=== PATIENT | male | born 1980 | race Caucasian/White ===

== ENCOUNTER 2018-07-05 05:44 | Emergency (ER) | END 2018-07-05 07:31 | disposition home or self-care (01) ==

== ENCOUNTER 2018-07-10 10:30 | Emergency (ER) | END 2018-07-10 11:42 | disposition home or self-care (01) ==

== ENCOUNTER 2018-09-05 06:47 | Emergency (ER) | payer BC ==
[~2018-09-05] VITALS: Wt 91.8 kg
[~2018-09-05 06:47] MED LIST: CEPH-443 PO
[2018-09-05 06:49] VITALS: BP 138/90; RESP 20
[2018-09-05] MEDS ORDERED: ACET500C5 PO (07:05)
[2018-09-05] MEDS ORDERED: IBUP-1542 PO (07:05)
[2018-09-05] MEDS ORDERED: OSEL75CA23 PO (07:05)
[2018-09-05] MEDS ORDERED: D-ME473S2 PO (07:06)
[2018-09-05] MEDS ORDERED: BENZ-6 PO (07:06)
--- NOTE | 2018-09-05 07:10 | ERD ---
ER Documentation Chief Complaint Chief Complaint FLU X 2 DAYS, FEVER,COUGH, RUNNY NOSE HPI Patient is a 38-year-old male with history of hypertension, DM type II, reports compliance to medications, presents the ER for concerns of fever, cough, rhinorrhea and generalized body aches for the last 2 days. Patient states he took Mucinex around 6 AM today. Patient states he has had tactile fevers. Patient states his cough is dry in nature. Patient denies any neck pain or neck stiffness. Patient denies any nausea, vomiting, abdominal pain, diarrhea. Patient denies any chest pain or shortness of breath. 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 No recent travel. No sick contacts. ROS All systems reviewed and are negative except as per history of present illness. Medications Home Meds Active Scripts Benzonatate* (Tessalon Perle*) 100 Mg Capsule, 100 MG PO Q8H PRN for COUGH, #20 CAP Prov:ANAT TOMAS PA-C 09/05/18 Dextromethorphan Hb-Promethazine Hcl* (Promethazine DM* Syrup) 473 Ml Syrup, 5 ML PO Q6 PRN for COUGH, #4 OZ Prov:ANAT TOMAS PA-C 09/05/18 Ibuprofen* (Motrin*) 600 Mg Tab, 600 MG PO Q6, #30 TAB Prov:ANAT TOMAS PA-C 09/05/18 Acetaminophen* (Tylophen*) 500 Mg Capsule, 1 CAP PO Q6H PRN for PAIN AND OR ISHMAEL VATED TEMP, #20 CAP Prov:ANAT TOMAS PA-C 09/05/18 Oseltamivir Phosphate* (Tamiflu*) 75 Mg Capsule, 75 MG PO BID for 5 Days, CAP Prov:ANAT TOMASC 09/05/18 Cephalexin* (Keflex*) 500 Mg Capsule, 500 MG PO QID for 7 Days, CAP Prov:AGUSTIN NIELSEN PA-C 07/05/18 Allergies Allergies: Coded Allergies: No Known Allergy (Unverified , 09/05/18) PMhx/Soc Hx Cardiac Disorders: Yes (htn) Hx Miscellaneous Medical Probl: Yes (diabetes) Hx Alcohol Use: No Hx Substance Use: No Hx Tobacco Use: No FmHx Family History: diabetes Physical Exam Vitals Vital Signs Date Temp Pulse Resp B/P (MAP) Pulse Ox O2 O2 Flow FiO2 Time Delivery Rate 09/05/18 100.0 07:11 09/05/18 100.0 99 20 138/90 99 06:49 (106) Physical Exam GENERAL: Well-developed, well-nourished male. Appears in no acute distress. Speaking in full sentences. Nontoxic in appearance. HEAD: Normocephalic, atraumatic. No deformities or ecchymosis. EYE: Pupils equal, round, and reactive to light. EOMs intact. No conjunctival erythema. No eye discharge. ENT: External ear without any masses or tenderness. Auditory canals clear bilaterally. TM visualized bilaterally, non-erythematous, non-bulging. Nasal mucosa pink with no discharge. Oropharynx is pink without any tonsillar erythema or exudates. No uvula deviation. No kissing tonsils. NECK: Supple. No meningismus. Normal ROM of the neck. LUNG: Clear to auscultation bilaterally. No rhonchi, wheezing, rales or coarse breath sounds. HEART: Regular rate and rhythm. No murmurs, rubs or gallops. EXTREMITIES: Equal pulses bilaterally. No peripheral clubbing, cyanosis or edema. No unilateral leg swelling. NEUROLOGIC: Alert and oriented to person, place and time. Moving all four extremities. 5/5 strength in all extremities. Normal speech. Steady gait. SKIN: Normal color. Warm and dry. No rashes or lesions. Results 24 hrs Current Medications Medications Dose Sig/Maame Start Time Status Last (Trade) Ordered Route PRN Stop Time Admin Dose Reason Admin Ibuprofen 600 mg ONCE ONCE 09/05/18 DC 09/05/18 (Motrin) PO 07:30 07:11 09/05/18 07:31 Procedures/MDM MEDICAL DECISION MAKING: This is a 38-year-old male with a history of type 2 diabetes, hypertension, presents the ER for concerns of intermittent tactile fevers, cough, congestion and generalized body aches for last 2 days. Vital signs were reviewed. Patient was noted to have low-grade temperature of 100 Fahrenheit. Patient was given ibuprofen here. Temperature noted to be downtrending prior to discharge.. Patient was not hypoxic. ENT exam was normal. Lung exam was normal. Influenza swab was positive for influenza A.. Given these findings, the patient's presentation is most consistent with influenza A. I have a much lower clinical concern for bacterial infections including pneumonia, meningitis, sinusitis, otitis externa, acute otitis media, strep pharyngitis, epiglottitis or peritonsillar abscess. Low suspicion for sepsis. Patient was nontoxic, non- opening prior to discharge. Given history of diabetes and we will treat patient with course of Tamiflu. Patient was advised to monitor symptoms closely and return in 3 days if symptoms persist for reevaluation. PRESCRIPTIONS: Tylenol, ibuprofen, Tamiflu, promethazine cough syrup, Tessalon Perles DISCHARGE: At this time, patient is stable for discharge and outpatient management. Supportive therapies such as OTC throat lozenges, salt water gurgles, popsicles and jello discussed. I have instructed the patient to follow-up with his/her primary care physician in 1-2 days. I have instructed the patient to promptly return to the ER for any new or worsening symptoms including increased pain, swelling, fever, nausea, vomiting, weakness or difficulty breathing. The patient and/or family expressed understanding of and agreement with this plan. All questions were answered. Home care instructions were provided. Disclaimer: Inadvertent spelling and grammatical errors are likely due to EHR/dictation software use and do not reflect on the overall quality of patient care. Also, please note that the electronic time recorded on this note does not necessarily reflect the actual time of the patient encounter. Departure Diagnosis: Primary Impression: Influenza Condition: Fair Patient Instructions: Influenza (Adult) Referrals: [facility], [facility] YOU HAVE RECEIVED A MEDICAL SCREENING EXAM AND THE RESULTS INDICATE THAT YOU DO NOT HAVE A CONDITION THAT REQUIRES URGENT TREATMENT IN THE EMERGENCY DEPARTMENT. FURTHER EVALUATION AND TREATMENT OF YOUR CONDITION CAN WAIT UNTIL YOU ARE SEEN IN YOUR DOCTORS OFFICE WITHIN THE NEXT 1-2 DAYS. IT IS YOUR RESPONSIBILITY TO MAKE AN APPOINTMENT FOR FOLOW-UP CARE. IF YOU HAVE A PRIMARY DOCTOR --you should call your primary doctor and schedule an appointment IF YOU DO NOT HAVE A PRIMARY DOCTOR YOU CAN CALL OUR PHYSICIAN REFERRAL HOTLINE AT IF YOU CAN NOT AFFORD TO SEE A PHYSICIAN YOU CAN CHOSE FROM THE FOLLOWING [facility] [address] [facility]. [facility] [address] [facility] [facility] [address] [facility] [address] [facility]. [facility] [address] [facility]. [facility] [address] [facility]. [facility] YOU HAVE RECEIVED A MEDICAL SCREENING EXAM AND THE RESULTS INDICATE THAT YOU DO NOT HAVE A CONDITION THAT REQUIRES URGENT TREATMENT IN THE EMERGENCY DEPARTMENT. FURTHER EVALUATION AND TREATMENT OF YOUR CONDITION CAN WAIT UNTIL YOU ARE SEEN IN YOUR DOCTORS OFFICE WITHIN THE NEXT 1-2 DAYS. IT IS YOUR RESPONSIBILITY TO MAKE AN APPOINTMENT FOR FOLOW-UP CARE. IF YOU HAVE A PRIMARY DOCTOR --you should call your primary doctor and schedule and appointment IF YOU DO NOT HAVE A PRIMARY DOCTOR YOU CAN CALL OUR PHYSICIAN REFERRAL HOTLINE AT . IF YOU CAN NOT AFFORD TO SEE A PHYSICIAN YOU CAN CHOSE FROM THE FOLLOWING [facility] INSTITUTIONS: [facility] [address] [place] [address] [facility] [address] [place] [address] [facility] + [facility] [address] [place] [address] Additional Instructions: Strict compliance with diabetes medications advised. If your cough persists after 3 days with fevers return here for chest x-ray. Call your primary care doctor TOMORROW for an appointment during the next 1-2 days.See the doctor sooner or return here if your condition worsens before your appointment time. ANAT TOMAS PA-C Sep 05, 2018 07:10
[2018-09-05] MEDS ORDERED: IBUPROFEN 600 MG TAB PO ONE (07:30)
[2018-09-05 07:44] VITALS: PULSE 87
== END 2018-09-05 07:44 | disposition home or self-care (01) ==
LOC: FTE 06:47
DX: J10.1 Influenza due to other identified influenza virus with other respiratory manifestations (principal); I10 Essential (primary) hypertension; E11.9 Type 2 diabetes mellitus without complications
CPT/HCPCS: 87400; Z7502; Z7610; 99283

== ENCOUNTER 2018-10-28 08:47 | Emergency (ER) | payer BC ==
[~2018-10-28] VITALS: Ht 172.7 cm; Wt 88.8 kg
[~2018-10-28 08:47] MED LIST changes: +ACET500C5 PO; +BENZ-6 PO; +D-ME473S2 PO; +IBUP-1542 PO; +OSEL75CA23 PO
[2018-10-28 08:51] VITALS: Ht 172.7 cm; Wt 88.8 kg
[2018-10-28] MEDS ORDERED: SOD CHLORIDE 0.9% 1,000 ML IV STA (10:37)
[2018-10-28] MEDS ORDERED: MECLIZINE 12.5 MG TAB PO ONE (11:00)
[2018-10-28] MEDS ORDERED: MECL-77 PO (12:28)
--- NOTE | 2018-10-28 12:35 | ERD ---
ER Documentation Chief Complaint Chief Complaint dizziness, weakness, "shaking" this am HPI 38-year-old male who presents to the emergency room with multiple complaints. He states that yesterday evening he drank a lot of beer and used cocaine for the first time in a while. This morning he woke up and did not feel well. The patient describes some dizziness and room spinning sensation when he moves his head and gets up out of bed. He denies any chest pain or shortness of breath no fevers or chills, no nausea vomiting or diarrhea. ROS All systems reviewed and are negative except as per history of present illness. Medications Home Meds Active Scripts Meclizine Hcl* (Meclizine Hcl*) 25 Mg Tablet, 25 MG PO Q8H PRN for DIZZINESS, #20 TAB Prov:BETINA ELDER MD 10/28/18 Benzonatate* (Tessalon Perle*) 100 Mg Capsule, 100 MG PO Q8H PRN for COUGH, #20 CAP Prov:ANAT TOMAS PA-C 09/05/18 Dextromethorphan Hb-Promethazine Hcl* (Promethazine DM* Syrup) 473 Ml Syrup, 5 ML PO Q6 PRN for COUGH, #4 OZ Prov:ANAT TOMAS PA-C 09/05/18 Ibuprofen* (Motrin*) 600 Mg Tab, 600 MG PO Q6, #30 TAB Prov:ANAT TOMAS PA-C 09/05/18 Acetaminophen* (Tylophen*) 500 Mg Capsule, 1 CAP PO Q6H PRN for PAIN AND OR ELEVATED TEMP, #20 CAP Prov:ANAT TOMAS PA-C 09/05/18 Oseltamivir Phosphate* (Tamiflu*) 75 Mg Capsule, 75 MG PO BID for 5 Days, CAP Prov:ANAT TOMAS PA-C 09/05/18 Cephalexin* (Keflex*) 500 Mg Capsule, 500 MG PO QID for 7 Days, CAP Prov:AGUSTIN NIELSEN PA-C 07/05/18 Allergies Allergies: Coded Allergies: No Known Allergy (Unverified , 09/05/18) PMhx/Soc History of Surgery: Yes (surgery @ right arm due to clots) Hx Cardiac Disorders: Yes (htn) Hx Miscellaneous Medical Probl: Yes (diabetes) Hx Alcohol Use: Yes Hx Substance Use: Yes Hx Tobacco Use: No Smoking Status: Former smoker FmHx Family History: No diabetes Physical Exam Vitals Vital Signs Date Temp Pulse Resp B/P (MAP) Pulse Ox O2 O2 Flow FiO2 Time Delivery Rate 10/28/18 97.9 100 19 151/88 100 08:51 (109) Physical Exam General: Well developed, well nourished, no acute distress Head: Normocephalic, atraumatic. Eyes: Pupils equally reactive, EOM intact ENT: Moist mucous membranes Neck: Supple, no lymphadenopathy Respiratory: Lungs clear bilaterally, no distress Cardiovascular: RRR, no murmurs, rubs, or gallops Abdominal: Soft, non-tender, non-distended, no peritoneal signs : Deferred MSK: No edema, no unilateral swelling, 5/5 strength Neurologic: Alert and oriented, moving all extremities, normal speech, no focal weakness, no cerebellar signs, normal rapid alternating movements, steady gait, no ataxia Skin: No rash Psych: Normal mood Result Diagram: 10/28/18 1034 10/28/18 1034 Results 24 hrs Laboratory Tests Test 10/28/18 10:34 White Blood Count 10.0 10^3/ul Red Blood Count 5.14 10^6/ul Hemoglobin 14.8 g/dl Hematocrit 43.1 % Mean Corpuscular Volume 83.9 fl Mean Corpuscular Hemoglobin 28.8 pg Mean Corpuscular Hemoglobin Concent 34.3 g/dl Red Cell Distribution Width 12.5 % Platelet Count 345 10^3/UL Mean Platelet Volume 9.4 fl Immature Granulocytes % 0.400 % Neutrophils % 75.3 % Lymphocytes % 17.3 % Monocytes % 6.1 % Eosinophils % 0.3 % Basophils % 0.6 % Nucleated Red Blood Cells % 0.0 /100WBC Immature Granulocytes # 0.040 10^3/ul Neutrophils # 7.6 10^3/ul Lymphocytes # 1.7 10^3/ul Monocytes # 0.6 10^3/ul Eosinophils # 0.0 10^3/ul Basophils # 0.1 10^3/ul Nucleated Red Blood Cells # 0.0 10^3/ul Sodium Level 141 mmol/L Potassium Level 4.6 mmol/L Chloride Level 103 mmol/L Carbon Dioxide Level 26 mmol/L Anion Gap 12 Blood Urea Nitrogen 14 mg/dl Creatinine 0.85 mg/dl Est Glomerular Filtrat Rate mL/min > 60 mL/min Glucose Level 224 mg/dl Calcium Level 10.0 mg/dl Current Medications Medications Dose Sig/Maame Start Time Status Last (Trade) Ordered Route PRN Stop Time Admin Dose Reason Admin Sodium 1,000 ml @ Q1H STAT 10/28/18 DC 10/28/18 Chloride 1,000 mls/hr IV 10:37 10:53 10/28/18 11:36 Meclizine 25 mg ONCE ONCE 10/28/18 DC 10/28/18 HCl PO 11:00 10:54 (Antivert) 10/28/18 11:01 Procedures/MDM EKG, MONITORS, & DIAGNOSTIC IMAGING: EKG: I reviewed and interpreted a 12-lead EKG. Rhythm: Normal sinus rhythm ST Changes: No contiguous ST segment elevations T waves: No contiguous T wave inversions Impression: No evidence of acute cardiac ischemia CT brain: No acute process per radiologist read LAB INTERPRETATION: I reviewed the laboratory testing and it shows hyperglycemia without evidence of DKA MEDICAL DECISION MAKING: The patient symptoms are likely consistent with mild dehydration in the setting of polysubstance abuse. The patient does have symptoms consistent with possible peripheral vertigo. No signs or symptoms concerning for stroke however given the patient's cocaine use and headache CT imaging of the brain would be appropriate. ER COURSE: * Patient given IV fluids and meclizine. His symptoms are improving. His laboratory testing and diagnostic imaging shows no evidence of endorgan dysfunction. * At this point the patient can be safely discharged home. Cocaine cessation discussed. * Patient has no stigmata for central vertigo. Outpatient workup and follow-up as appropriate. CONSULTATION: None DISPOSITION PLAN: The patient does not have an identifiable emergent medical condition that warrants inpatient hospitalization at this time. The patient is deemed safe for discharge with outpatient follow-up. We discussed follow up with the patient's primary care doctor within 24 to 48 hours as needed. We also discussed return to the emergency room for worsening symptoms or worsening condition. Outpatient referral: None required Discharge Medications: Meclizine Departure Diagnosis: Primary Impression: Peripheral vertigo Laterality: unspecified laterality Qualified Codes: H81.399 - Other peripheral vertigo, unspecified ear Additional Impression: Polysubstance abuse Condition: Stable Patient Instructions: Substance abuse, Vertigo, Unspecified Referrals: [facility] YOU HAVE RECEIVED A MEDICAL SCREENING EXAM AND THE RESULTS INDICATE THAT YOU DO NOT HAVE A CONDITION THAT REQUIRES URGENT TREATMENT IN THE EMERGENCY DEPARTMENT. FURTHER EVALUATION AND TREATMENT OF YOUR CONDITION CAN WAIT UNTIL YOU ARE SEEN IN YOUR DOCTORS OFFICE WITHIN THE NEXT 1-2 DAYS. IT IS YOUR RESPONSIBILITY TO MAKE AN APPOINTMENT FOR FOLOW-UP CARE. IF YOU HAVE A PRIMARY DOCTOR --you should call your primary doctor and schedule an appointment IF YOU DO NOT HAVE A PRIMARY DOCTOR YOU CAN CALL OUR PHYSICIAN REFERRAL HOTLINE AT IF YOU CAN NOT AFFORD TO SEE A PHYSICIAN YOU CAN CHOSE FROM THE FOLLOWING [facility] [address] [facility]. [facility] [address] [facility] [address] [facility]. [facility] [address] [facility] [address] [facility]. [facility] [address] [facility]. [facility] YOU HAVE RECEIVED A MEDICAL SCREENING EXAM AND THE RESULTS INDICATE THAT YOU DO NOT HAVE A CONDITION THAT REQUIRES URGENT TREATMENT IN THE EMERGENCY DEPARTMENT. FURTHER EVALUATION AND TREATMENT OF YOUR CONDITION CAN WAIT UNTIL YOU ARE SEEN IN YOUR DOCTORS OFFICE WITHIN THE NEXT 1-2 DAYS. IT IS YOUR RESPONSIBILITY TO MAKE AN APPOINTMENT FOR FOLOW-UP CARE. IF YOU HAVE A PRIMARY DOCTOR --you should call your primary doctor and schedule and appointment IF YOU DO NOT HAVE A PRIMARY DOCTOR YOU CAN CALL OUR PHYSICIAN REFERRAL HOTLINE AT . IF YOU CAN NOT AFFORD TO SEE A PHYSICIAN YOU CAN CHOSE FROM THE FOLLOWING [facility] INSTITUTIONS: [facility] [address] [place] [address] [facility] [address] [place] [address] [facility] + [facility] [address] [place] [address] Additional Instructions: Call your primary care doctor TOMORROW for an appointment during the next 1 WEEK.Tell the executive secretary that you were referred from this facility.See the doctor sooner or return here if your condition worsens before your appointment time. BETINA ELDER MD Oct 28, 2018 12:35
[2018-10-28 12:58] VITALS: BP 127/85; PULSE 88; RESP 17
== END 2018-10-28 12:59 | disposition home or self-care (01) ==
LOC: E/R 08:47
DX: H81.399 Other peripheral vertigo, unspecified ear (principal); F14.10 Cocaine abuse, uncomplicated; I10 Essential (primary) hypertension; E11.9 Type 2 diabetes mellitus without complications; Z87.891 Personal history of nicotine dependence
CPT/HCPCS: 36415; 70450; 80048; 85025; 93005; J7030; Z7502; Z7610